=== PATIENT | male | born 2000 | race Native Hawaiian/Other Pacific Islander ===

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

== ENCOUNTER 2021-05-31 18:01 | Emergency (ER) | payer OTHER ==
[~2021-05-31] VITALS: Ht 154.9 cm; Wt 55.8 kg
[2021-05-31 18:10] VITALS: BP 121/93; TEMP 99
== END 2021-05-31 19:00 | disposition home or self-care (01) ==
LOC: ED 18:01
DX: Z53.21 Procedure and treatment not carried out due to patient leaving prior to being seen by health care provider (principal)
CPT/HCPCS: 99281

== ENCOUNTER 2021-08-12 16:26 | Emergency (ER) | payer OTHER ==
[~2021-08-12] VITALS: Ht 154.9 cm; Wt 55.8 kg
[2021-08-12 22:10] VITALS: BP 121/81; TEMP 98.7
== END 2021-08-12 22:15 | disposition home or self-care (01) ==
LOC: ED 16:26
DX: R10.32 Left lower quadrant pain (principal); K59.09 Other constipation
CPT/HCPCS: 99282